=== PATIENT | male | born 1960 | race African-American/Black ===

== ENCOUNTER 2016-08-27 13:27 | Inpatient (IN) | payer OTHER ==
[~2016-08-27] VITALS: Ht 182.9 cm; Wt 88.7 kg
[2016-09-24] VITALS (11 sets, daily range): BP systolic 128–151; BP diastolic 71–86; PULSE 70–92; TEMP 97.6–99.9
[2016-09-24] MEDS ORDERED: CANA300T PO (07:48)
[2016-09-24] MEDS ORDERED: LIPITOR 40MG TA40 MG PO (07:49)
[2016-09-24] MEDS ORDERED: DIOVAN HCT 25 M1 TA1 PO (07:49)
[2016-09-24] MEDS ORDERED: ASPIRIN 81M81 MG/TA2 PO (07:50)
[2016-09-24] MEDS ORDERED: EPA FISH OIL1 SGL PO (07:50)
[2016-09-24] MEDS ORDERED: PRINIVIL40 MG PO (07:51)
[2016-09-25 00:54] VITALS: BP 127/68; PULSE 73; TEMP 98.1
[2016-09-25 06:13] VITALS: BP 132/64; PULSE 73; TEMP 98.4
[2016-09-25 07:23] LABS: BASO % 0.5 % (0.0-2.0); EOS # 0.1 (0.0-0.7); EOS % 1.9 % (0-4.0); GRAN # 3.5 (1.4-6.5); GRAN % 59.1 % (42.2-75.2); LYMPH # 1.8 (1.2-3.4); LYMPH % 30.8 % (20.0-51.0); MEAN CELL VOLUME 82 fl (80.0-100.0); MEAN CORPUSCULAR HGB CONC 33 g/dl (33.0-37.0); MEAN PLATELET VOLUME 11.6 fl (7.4-10.4); MONO # 0.4 (0.1-0.6); MONO % 7.4 % (1.7-9.3); PLATELET COUNT 148 K/mm3 (130-400); RED BLOOD COUNT 4.26 M/mm3 (4.20-5.60); REDCELL DISTRIBUTION WIDTH-CV 12.7 % (11.5-14.5); WHITE BLOOD COUNT 5.8 K/mm3 (4.8-10.8)
[2016-09-25 07:31] LABS: HEMATOCRIT 34.9 % (42.0-52.0); HEMOGLOBIN 11.4 g/dl (13.5-18.0); MEAN CORPUSCULAR HEMOGLOBIN 27 pg (27.0-31.0)
[2016-09-25 07:41] LABS: CALCIUM 7.9 mg/dL (8.4-10.2); CREATININE, serum 0.96 mg/dL (0.66-1.25); POTASSIUM 3.4 mmol/L (3.4-5.0)
[2016-09-25 10:16] VITALS: BP 131/64; PULSE 76; TEMP 98.2
[2016-09-25 15:02] VITALS: BP 118/62; PULSE 78; TEMP 98.5
[2016-09-25 18:02] VITALS: BP 133/74; PULSE 76; TEMP 98.7
[2016-09-25 21:52] VITALS: BP 146/82; PULSE 73; TEMP 97.8
[2016-09-26 05:31] VITALS: BP 139/72; PULSE 71; TEMP 98
[2016-09-26 10:04] VITALS: BP 136/71; PULSE 83; TEMP 98.6
== END 2016-09-26 11:40 | disposition home or self-care (01) | DRG 708 ==
LOC: INPTSU 09-24 06:40 → SURG 09-24 08:30
PROVIDERS: Urology
PROC: 8E0W4CZ Robotic Assisted Procedure of Trunk Region, Percutaneous Endoscopic Approach (ICD-10-PCS; 2016-09-24)
PROC: 0VT04ZZ Resection of Prostate, Percutaneous Endoscopic Approach (ICD-10-PCS; principal; 2016-09-24 08:30)
DX: C61 Malignant neoplasm of prostate (principal); I10 Essential (primary) hypertension; E11.9 Type 2 diabetes mellitus without complications
CPT/HCPCS: A9284; C1713; J0690; J1100; J1170; J1644; J1815; J1885; J2175; J2270; J2405; J2704; J3010; J7030; J7120

== ENCOUNTER 2023-03-06 12:43 | Inpatient (IN) | payer OTHER ==
[2023-03-06] VITALS (481 sets, daily range): BP systolic 136–150; BP diastolic 74–115; PULSE 62–63; TEMP 97.4–98.2; O2SAT 85–100
[~2023-03-06] VITALS: Ht 183 cm; Wt 103.0 kg
[~2023-03-06 12:43] MED LIST: ASPIRIN 81M81 MG/TA2 PO; CANA300T PO; DIOVAN HCT 25 M1 TA1 PO; EPA FISH OIL1 SGL PO; LIPITOR 40MG TA40 MG PO; PRINIVIL40 MG PO
[2023-03-06] MEDS ORDERED: *Potassium Replacement Protocol MC SCH (13:00)
[2023-03-06] MEDS ORDERED: niCARdipine 200 ML IV SCH ×2 (14:45)
[2023-03-06] MEDS ORDERED: Nitroglycerin/D5W 250 ML IV SCH (14:45)
--- NOTE | 2023-03-06 15:00 | NUR ---
Report received from JAKY Jackson at [facility]; patient transferred due to new onset CHF and hypertension, with systolic pressures in the 200-220s. Patient has bilateral AC IVs with nitro and fluids running; will adjust/change drip and fluids per hospitalist and medical health researcher's orders. Patient needed 2L oxygen in route according to EMS; patient remains on 2L O2 via nasal cannula at this time. Patient is alert and oriented, is afebrile, and has a noticed increased work of breathing and expiratory wheezes. Patient able to ambulate from the stretcher to the ICU bed. Patient's belongings put in closet in patient's room, to include clothing, wallet, and phone.
[2023-03-06 16:10] LABS: MEAN CELL VOLUME 80 fl (80.0-100.0); MEAN CORPUSCULAR HGB CONC 33 g/dl (33.0-37.0); RED BLOOD COUNT 3.38 M/mm3 (4.20-5.60); REDCELL DISTRIBUTION WIDTH-CV 14.7 % (11.5-14.5)
[2023-03-06 16:22] LABS: CALCIUM 7.8 mg/dL (8.4-10.2); CREATININE, serum 1.79 mg/dL (0.72-1.25); POTASSIUM 3.4 mmol/L (3.5-4.5)
[2023-03-06 16:28] LABS: HEMOGLOBIN 8.9 g/dl (13.5-18.0); MEAN CORPUSCULAR HEMOGLOBIN 26 pg (27-31)
[2023-03-06 16:29] LABS: PLATELET COUNT 88 K/mm3 (130-400)
[2023-03-06] MEDS ORDERED: amLODIPine 10 MG TAB PO ONE (16:45)
[2023-03-06] MEDS ORDERED: Furosemide 40 MG/4 ML VIAL IV ONE (16:45)
[2023-03-06] MEDS ORDERED: LANTUS SOLOS100 U/ML SQ (17:48)
[2023-03-06] MEDS ORDERED: NORVASC 10MG10 MG PO (17:49)
[2023-03-06] MEDS ORDERED: TENORMIN100 MG PO (17:50)
[2023-03-06] MEDS ORDERED: NOVOLOG FLEX100 U/ML SQ (17:51)
[2023-03-06] MEDS ORDERED: PRIL40 PO (17:52)
[2023-03-06] MEDS ORDERED: VANICREAM1 CRE (17:53)
[2023-03-06] MEDS ORDERED: DETROL LA 2 MG2 MG PO (17:53)
[2023-03-06] MEDS ORDERED: Insulin Aspart (NovoLOG) SQ SCH (18:00)
[2023-03-06] MEDS ORDERED: Potassium Bicarbonate/Citrate 20 MEQ Effervescent TAB PO SCH (20:00)
[2023-03-06] MEDS ORDERED: Atorvastatin 40 MG TAB PO SCH (21:00)
[2023-03-07] VITALS (962 sets, daily range): BP systolic 138–170; BP diastolic 76–100; PULSE 62–66; TEMP 97.4–98.6; O2SAT 81–100
[2023-03-07 06:22] LABS: CALCIUM 7.5 mg/dL (8.4-10.2); CREATININE, serum 1.98 mg/dL (0.72-1.25); MAGNESIUM 1.8 mg/dL (1.6-2.6); PHOSPHOROUS 3.6 mg/dL (2.3-4.7); POTASSIUM 3.5 mmol/L (3.5-4.5)
[2023-03-07 06:24] LABS: BASO # 0.1 K/mm3 (0.0-0.2); BASO % 0.9 % (0.0-2.0); EOS # 0.2 K/mm3 (0.0-0.7); EOS % 3.2 % (0.0-4.0); GRAN # 3.4 K/mm3 (1.4-6.5); HEMATOCRIT 25.1 % (42.0-52.0); HEMOGLOBIN 8.3 g/dl (13.5-18.0); LYMPH # 1.5 K/mm3 (1.2-3.4); LYMPH % 27.6 % (20.0-51.0); MEAN CELL VOLUME 80 fl (80.0-100.0); MEAN CORPUSCULAR HEMOGLOBIN 26 pg (27-31); MEAN CORPUSCULAR HGB CONC 33 g/dl (33.0-37.0); MONO # 0.4 K/mm3 (0.1-0.6); MONO % 6.8 % (1.7-9.3); PLATELET COUNT 73 K/mm3 (130-400); RED BLOOD COUNT 3.15 M/mm3 (4.20-5.60); REDCELL DISTRIBUTION WIDTH-CV 14.9 % (11.5-14.5)
--- NOTE | 2023-03-07 07:45 | NUR ---
Awake and resting in bed; A&0 x4. Cooperative with assessment. VS stable and denies any concerns at this time . Assisted with calling in breakfast order. Call light left within reach.
[2023-03-07] MEDS ORDERED: Potassium Bicarbonate/Citrate 20 MEQ Effervescent TAB PO SCH (08:00)
--- NOTE | 2023-03-07 09:20 | NUR ---
Initial visit; Patient thanked [employer] Press Operator for visiting him and offering a prayer at his request. prayed for specific healing and for the medical staff ministering to him. will follow up.
[2023-03-07] MEDS ORDERED: amLODIPine 10 MG TAB PO SCH (09:24)
[2023-03-07] MEDS ORDERED: Atenolol 50 MG TAB PO SCH (09:24)
[2023-03-07] MEDS ORDERED: ACTOS 15MG TAB15 MG PO (10:02)
[2023-03-07] MEDS ORDERED: MICARDIS40 MG PO (10:03)
[2023-03-07] MEDS ORDERED: MICARDIS80 MG PO (10:04)
[2023-03-07] MEDS ORDERED: hydrALAZINE 10 MG TAB PO PRN (10:45)
[2023-03-07] MEDS ORDERED: Furosemide 40 MG/4 ML VIAL IV ONE (10:45)
--- NOTE | 2023-03-07 12:30 | NUR ---
Assisted to the side of the bed to use the urinal. Patient does report shortness of breath with exertion. However, o2 saturations remain stable and dyspnea resloves quickly with rest. Will continue to monitor.
[2023-03-07] MEDS ORDERED: Telmisartan 40 MG **** subs to Losartan 50 MG PO SCH (13:16)
[2023-03-07] MEDS ORDERED: Losartan 50 MG TAB PO SCH (13:22)
--- NOTE | 2023-03-07 15:15 | NUR ---
TRANSFER OF CARE FROM JAKY BENTON TO JAKY BARNETT. PATIENT TRANSFERRED TO [facility] ROOM 15 AT THIS TIME. PATIENT TRANSFERRED VIA WHEELCHAIR ON 2L NC. PATIENT STABLE AT THE TIME OF TRANSFER
--- NOTE | 2023-03-07 15:45 | NUR ---
rescue worker met with patient and his , Tianna, (P# [phone]) to discuss discharge planning. Patient lives in [place] with his . PCP is Dr. Ray at [facility], preferred pharmacy is [facility] on [facility] or [facility] in [place]. No issues affording medications. Patient did not have a DPOA-CH at this time but was interested in completing one, SW assisted patient with completing the form. SW and RN witnessed patient's signature. SW made several copies, placed a copy in the chart and provided the original and several copies to the patient. Patient has a CPAP at home, reports to be independent with ADLS and is able to transport himself to appointments. Patient would like to return home at time of discharge. Discharge Plan: Home
[2023-03-08] VITALS (775 sets, daily range): BP systolic 132–183; BP diastolic 65–97; PULSE 60–69; TEMP 97.3–98.8; O2SAT 88–100
[2023-03-08] MEDS ORDERED: hydrALAZINE 20 MG/ML 1 ML VIAL IV ONE (05:45)
[2023-03-08 06:18] LABS: BASO % 0.6 % (0.0-2.0); EOS # 0.2 K/mm3 (0.0-0.7); EOS % 3.1 % (0.0-4.0); GRAN # 3.5 K/mm3 (1.4-6.5); GRAN % 64.9 % (42.2-75.2); LYMPH # 1.3 K/mm3 (1.2-3.4); LYMPH % 23.8 % (20.0-51.0); MEAN CELL VOLUME 79 fl (80.0-100.0); MEAN CORPUSCULAR HGB CONC 33 g/dl (33.0-37.0); MEAN PLATELET VOLUME 11.1 fl (7.4-10.4); MONO # 0.4 K/mm3 (0.1-0.6); MONO % 7.2 % (1.7-9.3); PLATELET COUNT 78 K/mm3 (130-400); RED BLOOD COUNT 3.42 M/mm3 (4.20-5.60); REDCELL DISTRIBUTION WIDTH-CV 14.7 % (11.5-14.5)
[2023-03-08 06:21] LABS: HEMOGLOBIN 8.9 g/dl (13.5-18.0); MEAN CORPUSCULAR HEMOGLOBIN 26 pg (27-31)
[2023-03-08 06:22] LABS: HEMATOCRIT 27.1 % (42.0-52.0)
[2023-03-08 06:42] LABS: ALBUMIN 2.1 gm/dL (3.4-4.8); CALCIUM 7.9 mg/dL (8.4-10.2); CREATININE, serum 2.03 mg/dL (0.72-1.25); MAGNESIUM 1.9 mg/dL (1.6-2.6); PHOSPHOROUS 3.3 mg/dL (2.3-4.7); POTASSIUM 3.9 mmol/L (3.5-4.5)
[2023-03-08] MEDS ORDERED: Potassium Bicarbonate/Citrate 20 MEQ Effervescent TAB PO ONE (07:30)
--- NOTE | 2023-03-08 09:56 | NUR ---
PATIENT LEFT THE FLOOR [facility] 17 AT 0930 FOR VQ SCAN IN RADIOLOGY.
--- NOTE | 2023-03-08 10:00 | NUR ---
Follow-up visit; Patient having a difficult time coughing this morning. Benny thanked Regional Project Manager for checking on him and offering a [place] for him this morning.
[2023-03-08] MEDS ORDERED: Furosemide 40 MG/4 ML VIAL IV ONE ×2 (10:30→19:00)
--- NOTE | 2023-03-08 13:56 | NUR ---
Patient returned to floor at 1005 from VQ scan. Patient was reweighed this morning with standard blanket, sheet, fitted sheet, and draw sheet on bed. Patient had socks, gown and shorts on. He weighed dramatically lower than previous am weight. 03/08/23 bedscale was 115.7 kg. bed striped, rezeroed and patient in standard dress as stated above, weighed 103.8 kg.
[2023-03-08] MEDS ORDERED: Benzonatate 100 MG CAP PO PRN (14:30)
--- NOTE | 2023-03-08 17:05 | NUR ---
PATIENT ALERT AND ORIENTED X4. PATIENT DENIES PAIN AT THIS TIME. PATIENT ON 2L /. PATIENT HAS BLE PITTING EDEMA +2.PATIENT HAS A HEALING ULCER ON THE RIGHT PLANTAR AREA OF HIS FOOT. PATIENT ALSO HAS SOME NODULES ON HIS NUCKLES THAT HE SAID "THEY ARE HEALED BLISTERS".CALL LIGHT WITHIN REACH, BED AT LOWEST POSITION.
[2023-03-08] MEDS ORDERED: Azithromycin 500 MG in NS 250 ML IV SCH (19:15)
[2023-03-08] MEDS ORDERED: cefTRIAXone 1 G in Water For Injection,Sterile 10 ML IV SCH (19:15)
--- NOTE | 2023-03-08 21:50 | NUR ---
PATIENT RESTING IN BED LYING ON BACK WITH TV ON WITH NO ACUTE DISTRESS NOTED. PATIENT ON ROOM AIR. TELEMETRY INTACT. INT TO RIGHT AND LEFT AC INTACT WITH NO COMPLICATIONS NOTED. PATIENT REQUESTED RIGHT AC INT BE REMOVED. ASSESSMENT AND MEDICATION ADMINISTRATION COMPLETED AT THIS TIME. PATIENT TOLERATED WELL. INT TO RIGHT AC REMOVED WITH CATHETER INTACT AND DRESSING APPLIED. PATIENT DENIES ANY OTHER NEEDS AT THIS TIME. BED IN LOW POSITION WTIH WHEELS LOCKED WITH RAILS UP X2 AND CALL LIGHT WITHIN REACH.
[2023-03-09] VITALS (12 sets, daily range): BP systolic 132–173; BP diastolic 71–86; PULSE 60–64; TEMP 97.5–99.1
--- NOTE | 2023-03-09 06:07 | NUR ---
PATIENT RESTING IN BED WITH EYES CLOSED WITH NO ACUTE DISTRESS NOTED. AUDILBE WHEEZING HEARD. PATIENT EASILY AROUSED. BLOOD SUGAR CHECKED, WAS 106, NO INSULIN GIVEN PER SSI DUE BLOOD SUGAR VALUE. AM MEDICATIONS GIVEN, SEE EMAR. PATIENT TOLERATED WELL. ALL NEEDS MET. BED IN LOW POSITION WITH WHEELS LOCKED WITH RAILS UP X2 AND CALL LIGHT WITHIN REACH.
[2023-03-09 06:43] LABS: BASO % 0.4 % (0.0-2.0); EOS # 0.1 K/mm3 (0.0-0.7); EOS % 2.5 % (0.0-4.0); GRAN # 3.1 K/mm3 (1.4-6.5); GRAN % 61.2 % (42.2-75.2); LYMPH # 1.4 K/mm3 (1.2-3.4); MEAN CELL VOLUME 80 fl (80.0-100.0); MEAN CORPUSCULAR HGB CONC 33 g/dl (33.0-37.0); MEAN PLATELET VOLUME 10.4 fl (7.4-10.4); MONO # 0.5 K/mm3 (0.1-0.6); MONO % 8.9 % (1.7-9.3); PLATELET COUNT 83 K/mm3 (130-400); RED BLOOD COUNT 3.13 M/mm3 (4.20-5.60); REDCELL DISTRIBUTION WIDTH-CV 14.7 % (11.5-14.5)
[2023-03-09 06:44] LABS: HEMATOCRIT 24.9 % (42.0-52.0); HEMOGLOBIN 8.1 g/dl (13.5-18.0); MEAN CORPUSCULAR HEMOGLOBIN 26 pg (27-31)
[2023-03-09 07:03] LABS: CALCIUM 8.1 mg/dL (8.4-10.2); CREATININE, serum 2.1 mg/dL (0.72-1.25); MAGNESIUM 1.9 mg/dL (1.6-2.6)
[2023-03-09] MEDS ORDERED: Losartan 50 MG TAB PO SCH (09:00)
[2023-03-09] MEDS ORDERED: Acetaminophen 325 MG TAB PO PRN (09:15)
[2023-03-09] MEDS ORDERED: Heparin Sodium 5000 UNITS/ML SUBCUTANEOUSLY Q8HR SQ SCH (09:15)
[2023-03-09] MEDS ORDERED: Furosemide 40 MG TAB PO SCH (09:15)
--- NOTE | 2023-03-09 11:01 | NUR ---
Patient alert and oriented x4. Complains of headache, BP noted to be elevated in 170s. PRN Apresoline administered. Lung sounds to right side noted to have crackles. No dyspnea noted. +3 pitting edema noted bilaterally to lower extremities. Patient activity at baseline. Currently in bed with call light in reach, all needs met at this time.
--- NOTE | 2023-03-09 12:54 | NUR ---
Patient complains of headache, and low grade fever noted. PRN Tylenol administered. BP lower than this morning. Patient voices no concerns, family at bedside. All needs met at this time.
--- NOTE | 2023-03-09 17:17 | NUR ---
Patient remains stable at this time. Complained of pain to IV site to left AC, site noted to be bleeding and dressing peeling off. New dressing applied, IV site patent with adequate flush and no signs of infiltration. Patient voiced concerns with Lasix and not producing enough urine, states he just leaks sometimes but hasn't sat on toilet and had large amount. Denies baseline urination issues. Patient voided in toilet and then bladder scan performed, 1ml noted left in bladder following void. Patient states he has not been drinking a lot of fluids because of his edema. Patient encouraged to drink enough to maintain hydration, but not increased amounts. Urinal provided to patient to track output. I/O sheet placed on door. Patient in bed with call light in reach, at bedside.
--- NOTE | 2023-03-09 20:00 | NUR ---
Assessment complete. A&Ox4. Denies pain/nausea. Short of breath with activity. VS stable. TELE reporting SR. Currently on O2@2L/NC. Left AC INT flushes without difficulty. Notd to have coarse crackles to right lung schroeder. +2 edema to bilat lower ext. Plan of care discussed for this shift to include meds/pain control/calling for questions/concerns. Verbalized understanding. Call light in reach. Will monitor.
[2023-03-10] VITALS (18 sets, daily range): BP systolic 144–187; BP diastolic 56–88; PULSE 61–68; TEMP 97.4–98.6
[2023-03-10] MEDS ORDERED: Dextrose (Glucose) 15 GM (4 x 3.75 GM) Chewable TABLET PACK PO PRN (00:30)
[2023-03-10] MEDS ORDERED: Dextrose 50% Water 25 GM/50 ML SYRINGE IV PRN (00:30)
[2023-03-10] MEDS ORDERED: Glucagon 1 MG VIAL IM PRN (00:30)
--- NOTE | 2023-03-10 05:43 | NUR ---
Patient had an uneventful night. TELE rporting SR. Currently on O2@2L/NC. Left AC INT flushed without difficulty. Denied nausea/pain. Noted to have +2 edema to bilat lower ext. Total output for this shift 450mls. Has remained NPO since 0000 in case of stress test. Denies current needs. Call light in reach. Will monitor.
[2023-03-10 06:25] LABS: BASO % 0.4 % (0.0-2.0); EOS # 0.1 K/mm3 (0.0-0.7); EOS % 2.9 % (0.0-4.0); GRAN # 2.9 K/mm3 (1.4-6.5); GRAN % 59.9 % (42.2-75.2); LYMPH # 1.4 K/mm3 (1.2-3.4); MEAN CELL VOLUME 81 fl (80.0-100.0); MEAN CORPUSCULAR HGB CONC 32 g/dl (33.0-37.0); MEAN PLATELET VOLUME 11.3 fl (7.4-10.4); MONO # 0.4 K/mm3 (0.1-0.6); MONO % 8.4 % (1.7-9.3); PLATELET COUNT 102 K/mm3 (130-400); REDCELL DISTRIBUTION WIDTH-CV 14.5 % (11.5-14.5)
[2023-03-10 06:40] LABS: CREATININE, serum 2.12 mg/dL (0.72-1.25); MAGNESIUM 1.9 mg/dL (1.6-2.6); POTASSIUM 3.6 mmol/L (3.5-4.5)
[2023-03-10 06:43] LABS: HEMOGLOBIN 8.1 g/dl (13.5-18.0); MEAN CORPUSCULAR HEMOGLOBIN 26 pg (27-31)
[2023-03-10] MEDS ORDERED: Potassium Chloride 100 ML IV SCH ×4 (07:30→15:15)
[2023-03-10] MEDS ORDERED: Insulin Aspart (NovoLOG) SQ SCH (08:00)
[2023-03-10] MEDS ORDERED: Regadenoson 0.08 MG/ML 5 ML SYRINGE IV SCH (08:59)
[2023-03-10] MEDS ORDERED: hydrALAZINE 25 MG TAB PO SCH (09:40)
[2023-03-10] MEDS ORDERED: cloNIDine 0.1 MG WEEKLY PATCH TD SCH (10:00)
--- NOTE | 2023-03-10 11:11 | NUR ---
Patient alert and oriented x4. Shift assessment complete earlier this morning. Lung sounds continue to have crackles noted. Edema to lower extremities +2 pitting. Urine output not increasing even though patient receiving lasix. Dr. Lee aware. BP elevated in 180s systolic this morning, PRN Apresoline administered. Patient states that his blood pressure at home is usually elevated in 170s as well. Patient left unit for lexiscan and returned, orders obtained to resume diet. Patient currently waiting for renal artery imaging. Education provided on testing. All needs met at this time.
[2023-03-10] MEDS ORDERED: Ascorbic Acid 500 MG TAB PO SCH (12:00)
[2023-03-10] MEDS ORDERED: Ferrous Sulfate 325 MG TAB PO SCH (12:00)
--- NOTE | 2023-03-10 16:58 | NUR ---
Patient remains stable. Activity at baseline. O2 stable on 2L via nasal cannula. IV to left AC leaking, site discontinued and new IV placed to right AC. Patient's BP decreased from 170s-180s, SBP around 1600 in 160s. Scheduled Apresoline administered. Clonidine patch placed to left upper arm. Patient in bed sitting up and eating dinner. Voices no concerns at this time.
--- NOTE | 2023-03-10 20:00 | NUR ---
Assessment complete. A&Ox4. Denies pain/nausea. SHort of breath with activity. TELE reporting SR. CUrrently on O2@1L/NC. Right AC INT flushes without difficulty. VS stable-slightly elevated blood pressure. +3 edema to bilat lower ext. Noted to have exp wheezes. Plan of care discussed for this shift to include meds/pain control/calling for questions/concerns. Verbalizes understanding. Call light in reach. Will monitor.
[2023-03-11] VITALS (13 sets, daily range): BP systolic 127–177; BP diastolic 65–84; PULSE 63–92; TEMP 97.3–100.1
--- NOTE | 2023-03-11 02:56 | NUR ---
Patient states he feels more short of breath. RT had been in room and evaluated patient and stated his O2 Saturation was good on 1L/NC. After discussing with RT-suggested dupurvi. Spoke with JAVIER Yee and new orders received to try. RT at bedside at this time. Will monitor.
[2023-03-11] MEDS ORDERED: Albuterol/Ipratropium 3 MG-0.5 MG/3 ML Neb Soln IH PRN (03:00)
--- NOTE | 2023-03-11 06:10 | NUR ---
Patient rested better later this AM after receiving a breathing treatment. On 1L/NC O2 with good oxygentation. Still states he is short of breath. Noted to have +2-+3 to bilat lower ext. TELE reporting SR. Did have slightly elevated blood pressures still. Output was minimal overnight-400mls. Denies current needs. Call light in reach. Will monitor.
--- NOTE | 2023-03-11 06:49 | NUR ---
Bedside report given to JAKY Hernandez.
[2023-03-11 07:52] LABS: MAGNESIUM 1.9 mg/dL (1.6-2.6); POTASSIUM 3.6 mmol/L (3.5-4.5)
--- NOTE | 2023-03-11 08:00 | NUR ---
PATIENT AWAKE AND ALERT, SITING UP IN BED. PATINET ELDER ANY NEEDS OR COMPLAINTS AT THIS TIME. MOHAN LIGHT WITHIN REACH, O2 NC ON PATIENT.
[2023-03-11 08:06] LABS: BASO % 0.6 % (0.0-2.0); EOS # 0.2 K/mm3 (0.0-0.7); GRAN # 3.1 K/mm3 (1.4-6.5); GRAN % 58.5 % (42.2-75.2); LYMPH # 1.5 K/mm3 (1.2-3.4); LYMPH % 28.9 % (20.0-51.0); MEAN CELL VOLUME 81 fl (80.0-100.0); MEAN CORPUSCULAR HGB CONC 33 g/dl (33.0-37.0); MEAN PLATELET VOLUME 12.1 fl (7.4-10.4); MONO # 0.5 K/mm3 (0.1-0.6); MONO % 8.8 % (1.7-9.3); PLATELET COUNT 105 K/mm3 (130-400); RED BLOOD COUNT 3.02 M/mm3 (4.20-5.60); REDCELL DISTRIBUTION WIDTH-CV 14.4 % (11.5-14.5)
[2023-03-11 08:08] LABS: MEAN CORPUSCULAR HEMOGLOBIN 26 pg (27-31)
[2023-03-11 08:09] LABS: HEMATOCRIT 24.3 % (42.0-52.0)
[2023-03-11 08:17] LABS: CALCIUM 7.9 mg/dL (8.4-10.2); CREATININE, serum 2.15 mg/dL (0.72-1.25); POTASSIUM 3.7 mmol/L (3.5-4.5)
[2023-03-11] MEDS ORDERED: Influenza Virus Vaccine, Quad '23-24 (6 MOS+) 0.5 ML SYRINGE IM SCH (09:00)
[2023-03-11] MEDS ORDERED: predniSONE 20 MG TAB PO SCH (09:15)
[2023-03-11] MEDS ORDERED: Potassium Bicarbonate/Citrate 20 MEQ Effervescent TAB PO SCH (09:30)
[2023-03-11] MEDS ORDERED: cloNIDine 0.2 MG WEEKLY PATCH TD SCH (10:00)
--- NOTE | 2023-03-11 13:21 | NUR ---
farmworker dairy attended clinical rounding and was informed pt can potentially discharge tomorrow. He is on oxygen and an excerise oximetry was ordered. Pt does not qualify for home oxygen. Discharge Plan: Home
[2023-03-11] MEDS ORDERED: Heparin Sodium 5000 UNITS/ML SUBCUTANEOUSLY Q8HR SQ SCH (16:00)
[2023-03-11] MEDS ORDERED: Furosemide 20 MG TAB PO SCH (16:30)
--- NOTE | 2023-03-11 18:50 | NUR ---
TUNG COMPLAINGING OF SOME SOB, RT CALLED FOR PRN TREATMENT. TUNG O2 SATURATION WNL ON ROOM AIR. TUNG HAS 4 FAMILY MEMBERS AT BEDSIDE
--- NOTE | 2023-03-11 19:30 | NUR ---
PATIENT RESTING IN BED WITH TV ON WITH FAMILY AT BEDSIDE WITH NO ACUTE DISTRESS NOTED. PATIENT ON ROOM AIR. ASSESSMENT COMPLETED. PATIENT TOLERATED WELL. FAMILY QUESTIONS ANSWERED. PATIENT DENIES ANY NEEDS. BED IN LOW POSITION WITH WHEELS LOCKED WITH RAILS UP X2 AND CALL LIGHT WITHIN REACH.
--- NOTE | 2023-03-11 20:30 | NUR ---
PATIENT RESTING IN BED WITH TV ON WITH NO FAMILY PRESENT AT THIS TIME. NO ACUTE DISTRESS NOTED. PATIENT ON ROOM AIR. MEDICATION ADMINISTRATION COMPELTED AT THIS TIME. PATIENT TOLERATED WELL. PATIENT REQUESTED PILLOWS TO ELEVATED LEGS. PILLOWS GIVEN AND PLACED UNDER BILATERAL LEGS. PATIENT DENIES ANY OTHER NEEDS. BED IN LOW POSITION WITH WHEELS LOCKED WITH RAILS UP X2 AND CALL LIGHT WITHIN REACH.
[2023-03-12] VITALS: BP_SYST 158
[2023-03-12 02:51] VITALS: BP 166/78; PULSE 71; TEMP 98.4
[2023-03-12 03:53] VITALS: BP_SYST 166
[2023-03-12 05:57] LABS: GRAN # 3.2 K/mm3 (1.4-6.5); GRAN % 84.3 % (42.2-75.2); LYMPH # 0.5 K/mm3 (1.2-3.4); LYMPH % 12.2 % (20.0-51.0); MEAN CELL VOLUME 80 fl (80.0-100.0); MEAN CORPUSCULAR HGB CONC 33 g/dl (33.0-37.0); MEAN PLATELET VOLUME 12.2 fl (7.4-10.4); MONO # 0.1 K/mm3 (0.1-0.6); MONO % 3.2 % (1.7-9.3); PLATELET COUNT 118 K/mm3 (130-400); RED BLOOD COUNT 3.11 M/mm3 (4.20-5.60); REDCELL DISTRIBUTION WIDTH-CV 14.3 % (11.5-14.5)
[2023-03-12 06:03] LABS: HEMATOCRIT 24.9 % (42.0-52.0); HEMOGLOBIN 8.2 g/dl (13.5-18.0); MEAN CORPUSCULAR HEMOGLOBIN 26 pg (27-31)
[2023-03-12 06:10] LABS: CREATININE, serum 2.35 mg/dL (0.72-1.25); POTASSIUM 4.3 mmol/L (3.5-4.5)
[2023-03-12 07:51] VITALS: BP 174/78; PULSE 82; TEMP 98.4
--- NOTE | 2023-03-12 08:38 | NUR ---
Patient is resting in bed, alert and oriented x 4, complains of some headache, ref tylenol, states his breakfast will help. Pt sais when he stands up he feels some lightheadedness but then he feels normal. Telemetry in place, NSR. His blood glucose has been raising, he is woundering why, some education about prednisone, Assessment completed, meds given. No further needs at this time. Call light within reach.
[2023-03-12 09:00] VITALS: BP_SYST 174
[2023-03-12] MEDS ORDERED: Influenza Virus Vaccine, Quad '23-24 (6 MOS+) 0.5 ML SYRINGE IM SCH ×2 (09:00)
[2023-03-12] MEDS ORDERED: APRESOLINE50 MG PO (11:46)
[2023-03-12] MEDS ORDERED: CATAPRES-TTS 20.2 M1 TD (11:46)
[2023-03-12] MEDS ORDERED: LASIX 20MG TABL20 MG PO (11:47)
[2023-03-12] MEDS ORDERED: TESSALON P100 MG/CAP PO (11:47)
[2023-03-12] MEDS ORDERED: PREDNISONE10 MG PO (11:52)
[2023-03-12] MEDS ORDERED: DOXYCYCLINE HY100 MG PO (12:00)
[2023-03-12] MEDS ORDERED: COMBIRESP IH (12:02)
--- NOTE | 2023-03-12 13:52 | NUR ---
Patient and were provided with discharge information, all questions answered. IV access and Telemetry were discontinued.
[2023-03-12 13:54] VITALS: BP_SYST 174
== END 2023-03-12 13:45 | disposition home or self-care (01) | DRG 193 ==
LOC: MEDICAL 12:43 → IMCU 12:43 → ICU 12:43 → IMCU 03-07 16:47 → MEDICAL 03-08 16:48
PROVIDERS: Internal Medicine; Physician Assistant; ADMIT Internal Medicine
DX: J18.9 Pneumonia, unspecified organism (principal); I50.33 Acute on chronic diastolic (congestive) heart failure; J96.01 Acute respiratory failure with hypoxia; I16.1 Hypertensive emergency; I13.0 Hypertensive heart and chronic kidney disease with heart failure and stage 1 through stage 4 chronic kidney disease, or unspecified chronic kidney disease; I47.10 Supraventricular tachycardia, unspecified; I31.39 Other pericardial effusion (noninflammatory); J90 Pleural effusion, not elsewhere classified; I50.30 Unspecified diastolic (congestive) heart failure; N17.9 Acute kidney failure, unspecified; D69.6 Thrombocytopenia, unspecified; E11.22 Type 2 diabetes mellitus with diabetic chronic kidney disease; D64.9 Anemia, unspecified; N18.9 Chronic kidney disease, unspecified; I34.0 Nonrheumatic mitral (valve) insufficiency; R79.89 Other specified abnormal findings of blood chemistry; Z79.82 Long term (current) use of aspirin; Z79.899 Other long term (current) drug therapy; Z98.52 Vasectomy status; Z99.89 Dependence on other enabling machines and devices; Z88.8 Allergy status to other drugs, medicaments and biological substances; Z85.46 Personal history of malignant neoplasm of prostate; Z79.4 Long term (current) use of insulin
CPT/HCPCS: A9500-JZ; A9540-JZ; A9567-JZ; J0360; J0456; J0696; J1644; J1815; J1940; J2305; J2404; J2785; J3480; J7050; J7512

== ENCOUNTER 2023-08-05 08:47 | Day surgery (SDC) | payer OTHER ==
[~2023-08-05] VITALS: Ht 182.9 cm; Wt 95.5 kg
[~2023-08-05 08:47] MED LIST changes: +ACTOS 15MG TAB15 MG PO; +APRESOLINE50 MG PO; +CATAPRES 0.1MG0.1 MG PO; +CATAPRES-TTS 20.2 M1 TD; +COMBIRESP IH; +DETROL LA 2 MG2 MG PO; +DOXYCYCLINE HY100 MG PO; +GLUCOTROL 5M5 MG/TAB PO; +LANTUS SOLOS100 U/ML SQ; +LASIX 20MG TABL20 MG PO; +LASIX 40MG TABL40 MG PO; +LASIX 80MG TABL80 MG PO; +LR 1,000 ML IV SCH; +MICARDIS40 MG PO; +MICARDIS80 MG PO; +NORCO 325 MG-51 TAB PO; +NORVASC 10MG10 MG PO; +NOVOLOG FLEX100 U/ML SQ; +NS 1,000 ML IV SCH; +Ondansetron 4 MG/2 ML VIAL IV PRN; +PREDNISONE10 MG PO; +PRIL40 PO; +TENORMIN100 MG PO; +TESSALON P100 MG/CAP PO; +VANICREAM1 CRE; +ZAROXOLYN 2.52.5 MG PO
[2023-08-05] MEDS ORDERED: APRESOLINE50 MG PO (09:48)
[2023-08-05] MEDS ORDERED: TENORMIN 2525 MG/TAB PO (09:50)
[2023-08-05 10:45] LABS: BASO % 0.7 % (0.0-2.0); EOS # 0.2 K/mm3 (0.0-0.7); EOS % 3.7 % (0.0-4.0); GRAN # 3.4 K/mm3 (1.4-6.5); GRAN % 59.8 % (42.2-75.2); HEMATOCRIT 26.8 % (42.0-52.0); HEMOGLOBIN 8.6 g/dl (13.5-18.0); LYMPH # 1.6 K/mm3 (1.2-3.4); MEAN CELL VOLUME 82 fl (80.0-100.0); MEAN CORPUSCULAR HEMOGLOBIN 26 pg (27-31); MEAN CORPUSCULAR HGB CONC 32 g/dl (33.0-37.0); MEAN PLATELET VOLUME 11.9 fl (7.4-10.4); MONO # 0.4 K/mm3 (0.1-0.6); MONO % 7.6 % (1.7-9.3); PLATELET COUNT 147 K/mm3 (130-400); RED BLOOD COUNT 3.28 M/mm3 (4.20-5.60)
[2023-08-05] MEDS ORDERED: Lidocaine PF 2% (20 MG/ML) 5 ML VIAL ONE (12:32)
[2023-08-05] MEDS ORDERED: Glycopyrrolate 0.2 MG/ML 1 ML VIAL ONE (12:35)
[2023-08-05 12:52] VITALS: BP 181/94; PULSE 65; TEMP 97.8
--- NOTE | 2023-08-05 12:55 | NUR ---
0922 Into pre-op Patient ambulatory to bay 2 with steady gait, breathing even and unlabored. Pt is alert and oriented, accompanied by his . Consents reviewed and signed by the patient. Patient admits to eating a cracker at 0700. Procedure time moved back 6 hrs. IV established. NS infusion via gravity at KVO. Call light in reach. Warm blanket provided.
[2023-08-05 13:45] VITALS: BP 129/69; PULSE 64; TEMP 97.5
[2023-08-05 14:00] VITALS: BP 155/94; PULSE 62
[2023-08-05 14:15] VITALS: BP 166/88; PULSE 64
--- NOTE | 2023-08-05 14:25 | NUR ---
1345 RETURNS TO ROOM 2 PER CART. AWAKE, ALERT. RESP UNLABORED. AMBULATES TO RECLINER WITH STANDBY ASSIST. ABD SOFT. DENIES NAUSEA, ABD PAIN OR DYSPHAGIA. VITAL SIGNS OBTAINED. CALL LIGHT AT SIDE. IN ROOM 1355 TOLERATES PO JUICE AND PUDDING WITHOUT NAUSEA. SWALLOWS WITHOUT DIFFICULTY. DISCHARGE INSTRUCTIONS REVIEWED. PATIENT AND VERBALIZE UNDERSTANDING. COPY PROVIDED IN DISCHARGE FOLDER [id number] WA[address]ING FOR VISIT FROM DR [id number] DR HANLEY HERE TO VISIT WITH PATIENT [id number] DRESSES SELF
== END 2023-08-05 14:30 | disposition home or self-care (01) ==
LOC: SDCO 08:47
PROVIDERS: Internal Medicine Gastroenterology
DX: D12.3 Benign neoplasm of transverse colon (principal); K57.30 Diverticulosis of large intestine without perforation or abscess without bleeding; K29.30 Chronic superficial gastritis without bleeding; D64.9 Anemia, unspecified; Z99.2 Dependence on renal dialysis; Z85.46 Personal history of malignant neoplasm of prostate
CPT/HCPCS: J2704; J7030

== ENCOUNTER → 2023-10-10 | Outpatient (CLI) | payer OTHER ==
[~2023-10-10] MED LIST changes: +Albuterol 0.083% Neb Soln 2.5 MG/3 ML UD IH ONE; +Iohexol 300 - 100 ML VIAL IV ONE; -LR 1,000 ML IV SCH; -NS 1,000 ML IV SCH; +NS 100 ML IV SCH; -Ondansetron 4 MG/2 ML VIAL IV PRN; +TENORMIN 2525 MG/TAB PO
== END ==
LOC: COL.RAD 08:54
DX: J90 Pleural effusion, not elsewhere classified (principal); R91.8 Other nonspecific abnormal finding of lung field; J98.11 Atelectasis
CPT/HCPCS: Q9967